=== PATIENT | female | born 1960 | race Caucasian/White ===

== ENCOUNTER 2018-07-01 11:26 | Emergency (ER) | payer OTHER ==
[~2018-07-01] VITALS: Ht 170.2 cm; Wt 54.4 kg
[2018-07-01] MEDS ORDERED: BUTA1CAP31 PO (11:49)
--- NOTE | 2018-07-01 11:49 | PHYS DOC ---
Adult General Chief Complaint Chief Complaint: SUTURE/STAPLE REMOVAL [facility] HPI Patient is a 57 year old female who presents for staple removal. Patient states she had the syncopal placement in [facility] on June 11 and was not able to come for removing nagi sooner than today. Patient denies fever and chills and drainage of pus or blood from the staple site. Patient complaining of chronic migraine headache and asking for refill of Fioricet with codeine for 10 days. Review of Systems Review of Systems Constitutional: Denies fever or chills [] Eyes: Denies change in visual acuity, redness, or eye pain [] HENT: Denies nasal congestion or sore throat [] Respiratory: Denies cough or shortness of breath [] Cardiovascular: No additional information not addressed in HPI [] GI: Denies abdominal pain, nausea, vomiting, bloody stools or diarrhea [] : Denies dysuria or hematuria [] Musculoskeletal: Denies back pain or joint pain [] Integument: Denies rash or skin lesions [] Neurologic: Reports headache, denies focal weakness or sensory changes [] Endocrine: Denies polyuria or polydipsia [] All other systems were reviewed and found to be within normal limits, except as documented in this note. Physical Exam Physical Exam Constitutional: Well nourished, no acute distress, non-toxic appearance. [] HENT: Normocephalic, left temporal well healed wound with [address] Eyes: PERRLA, EOMI, conjunctiva normal, no discharge. [] Neck: Normal range of motion, no tenderness, supple, no stridor. [] Cardiovascular:Heart rate regular rhythm, no murmur [] Lungs & Thorax: Bilateral breath sounds clear to auscultation [] Back: No tenderness, no CVA tenderness. [] Extremities: No tenderness, no cyanosis, no clubbing, ROM intact, no edema. [] Neurologic: Alert and oriented X 3, normal motor function, normal sensory function, no focal deficits noted. [] Psychologic: Affect normal, judgement normal, mood normal. [] Current Patient Data Vital Signs Vital Signs Date Time Temp Pulse Resp B/P (MAP) Pulse Ox O2 Delivery O2 Flow Rate FiO2 07/01/18 11:51 98.4 86 16 142/69 (93) 98 Room Air 98.4 EKG EKG [] Radiology/Procedures Radiology/Procedures [] Course & Med Decision Making Course & Med Decision Making Evaluation of patient in ER showed 57-year-old female patient presented for staple removal and asking for refill of Fioricet with codeine. 6 nagi was removed by BAR TACKER without problem and patient had prescription for Fioricet# 10 a nd was advised to follow up with her primary care physician for refill of chronic medication. Dragon Disclaimer Dragon Disclaimer This electronic medical record was generated, in whole or in part, using a voice recognition dictation system. Departure Departure Impression: Primary Impression: Encounter for staple removal Additional Impressions: Medication refill Migraine Disposition: HOME, SELF-CARE (at 1147) Condition: STABLE Referrals: TAMERA RODRIGUEZ (PCP) Patient Instructions: Medication Refill, Emergency Department, Migraine Headache, Staple Removal, Care After Additional Instructions: Keep wound clean and dry Follow-up with your primary care physician in 2 days for refill of medication Return to ER if not getting better Scripts Butalbital/Aspirin/Caffeine (FIORINAL 50-325-40 MG CAPSULE) 1 Each Capsule 1 EACH PO QID, #10 CAP Prov: ALEJANDRO RICHARD MD 07/01/18 Problem Qualifiers Additional Impressions: Migraine Migraine type: unspecified Status migrainosus presence: without status migrainosus Intractability: not intractable Qualified Codes: G43.909 - Migraine, unspecified, not intractable, without status migrainosus ALEJANDRO RICHARD MD July 01, 2018 11:49
[2018-07-01 11:51] VITALS: BP 142/69
== END 2018-07-01 12:12 | disposition home or self-care (01) ==
LOC: ER 11:26
DX: S01.81XD Laceration without foreign body of other part of head, subsequent encounter (principal); G43.909 Migraine, unspecified, not intractable, without status migrainosus; Z76.0 Encounter for issue of repeat prescription; G89.29 Other chronic pain; X58.XXXD Exposure to other specified factors, subsequent encounter
CPT/HCPCS: 99283

== ENCOUNTER 2018-07-20 19:15 | Emergency (ER) | payer OTHER ==
[~2018-07-20] VITALS: Ht 172.7 cm; Wt 63.5 kg
[~2018-07-20 19:15] MED LIST: BUTA1CAP31 PO
[2018-07-20 19:34] VITALS: BP 144/76
[2018-07-20] MEDS: ALPRAZolam 0.5 MG TABLET PO ONE (20:37)
[2018-07-20] MEDS ORDERED: TOPI100T42 PO (20:39)
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
[2018-07-20] MEDS: clonazePAM 0.5 MG TABLET PO ONE (20:40)
[2018-07-20] MEDS: TOPIRAMATE 100 MG TABLET. PO STA (20:52)
== END 2018-07-20 20:57 | disposition home or self-care (01) ==
LOC: ER 19:15
DX: F41.9 Anxiety disorder, unspecified (principal); G43.909 Migraine, unspecified, not intractable, without status migrainosus; Z76.0 Encounter for issue of repeat prescription
CPT/HCPCS: 99284

== ENCOUNTER 2018-12-06 14:41 | Emergency (ER) | payer MEDICAID, OTHER ==
[~2018-12-06] VITALS: Ht 170.2 cm; Wt 61.2 kg
[~2018-12-06 14:41] MED LIST changes: +TOPI100T42 PO
[2018-12-06] MEDS ORDERED: IV NORMAL SALINE 1000ML BAG 1,000 ML IV SCH (15:07)
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
[2018-12-06 15:23] LABS: BASO # 0.1 x10^3/uL (0.0-0.2); BASO % 1 % (0-3); EOS % 0 % (0-3); HEMATOCRIT 39.2 % (36.0-47.0); LYMPH % 27 % (24-48); MEAN CORPUSCULAR HEMOGLOBIN 29 pg (25-35); MEAN CORPUSCULAR HGB CONC 33 g/dL (31-37); MEAN CORPUSCULAR VOLUME 89 fL (79-100); MONO # 0.3 x10^3/uL (0.0-1.1); MONO % 4 % (0-9); NEUT # 4.9 x10^3/uL (1.8-7.7); NEUT % 67 % (31-73); PLATELET COUNT 130 x10^3/uL (140-400); RED BLOOD COUNT 4.42 x10^6/uL (3.50-5.40); RED CELL DISTRIBUTION WIDTH 15.9 % (11.5-14.5); WHITE BLOOD COUNT 7.4 x10^3/uL (4.0-11.0)
[2018-12-06 15:33] LABS: CALCIUM 9.3 mg/dL (8.5-10.1); GFR 56.7; POTASSIUM 3.8 mmol/L (3.5-5.1)
[2018-12-06 15:39] LABS: PROTHROMBIN TIME PATIENT 12.6 SEC (11.7-14.0)
[2018-12-06 15:40] LABS: ALBUMIN 3.6 g/dL (3.4-5.0); ALBUMIN/GLOBULIN RATIO 0.9 (1.0-1.7); TOTAL BILIRUBIN 0.2 mg/dL (0.2-1.0); TOTAL PROTEIN 7.4 g/dL (6.4-8.2)
--- NOTE | 2018-12-06 15:47 | RAD ---
PORTABLE CHEST 1V 12/06/2018 3:07 PM INDICATION: Chest pain COMPARISON: None available TECHNIQUE: Portable frontal view of the chest is provided. FINDINGS: The cardiomediastinal silhouette is similar in appearance. Lungs are clear. Surgical clips are identified in the axillary regions bilaterally. There are no significant pleural effusions. There is no pulmonary vascular congestion. No pneumothorax. IMPRESSION: There is no acute cardiopulmonary process. Electronically signed by: Katherine Hughes MD (12/06/2018 3:44 PM) [facility]
--- NOTE | 2018-12-06 16:05 | EKG ---
[facility] [address] [place] [address] Test Date: 2018-12-06 Test Time: 14:46:43 Pat Name: DERREK ANAYA Department: Room: Gender: F Tack Cutter: : 1960 Requested By: ALEJANDRO RICHARD Order Number: [id number] Reading MD: Sergio Bates MD Measurements Intervals [place] Rate: 79 P: 90 AL: 132 QRS: -1 QRSD: 98 T: -7 QT: 442 QTc: 508 Interpretive Statements SINUS RHYTHM NON-SPECIFIC ST/T CHANGES Electronically Signed On 12-17-2018 11:48:39 CDT by Sergio Bates MD
[2018-12-06 16:16] VITALS: BP 159/94
[2018-12-06] MEDS ORDERED: CLON2TAB PO (16:27)
== END 2018-12-06 16:40 | disposition home or self-care (01) ==
LOC: ER 14:41
DX: R07.2 Precordial pain (principal); F41.9 Anxiety disorder, unspecified; Z76.5 Malingerer [conscious simulation]; Z76.0 Encounter for issue of repeat prescription; Z72.0 Tobacco use; Z71.6 Tobacco abuse counseling; R42 Dizziness and giddiness; G43.909 Migraine, unspecified, not intractable, without status migrainosus
CPT/HCPCS: 36415; 71045; 80053; 82550; 83690; 83880; 84484; 85025; 85610; 93005; 96361; 96374; 99285; J2060; J7030

== ENCOUNTER 2018-12-13 17:07 | Emergency (ER) | payer MEDICAID ==
[~2018-12-13] VITALS: Ht 170.2 cm; Wt 59.0 kg
[2018-12-13 17:15] VITALS: BP 155/108
--- NOTE | 2018-12-13 17:26 | PHYS DOC ---
Past Medical History Past Medical History: Anxiety, Arthritis, Cancer, Fibromyalgia, Migraines, Seizure Past Surgical History: No Surgical History Additional Past Surgical Histo: double mastectomy, left lymph node removal Alcohol Use: None Drug Use: None Adult General Chief Complaint Chief Complaint: Palpitations HPI HPI Patient is a 58 year old female with history of anxiety who presents with requesting EKG. Patient was seen by neurologist Dr. Potts today and was told to go to the emergency room to obtain an EKG because of fast heartbeat. Patient complaining of palpitation at arrival to ER without chest pain. Patient has had history of anxiety and drug-seeking behavior and was seen in this emergency room recently with complaining of anxiety and requesting for refill of medication. Patient has prescription of Xanax given by her neurologist today. Patient denies suicidal and homicidal ideation and hallucination. Review of Systems Review of Systems Constitutional: Denies fever or chills [] Eyes: Denies change in visual acuity, redness, or eye pain [] HENT: Denies nasal congestion or sore throat [] Respiratory: Denies cough or shortness of breath [] Cardiovascular: No additional information not addressed in HPI [] GI: Denies abdominal pain, nausea, vomiting, bloody stools or diarrhea [] : Denies dysuria or hematuria [] Musculoskeletal: Denies back pain or joint pain [] Integument: Denies rash or skin lesions [] Neurologic: Denies headache, focal weakness or sensory changes [] Endocrine: Denies polyuria or polydipsia [] All other systems were reviewed and found to be within normal limits, except as documented in this note. Allergies Allergies Allergies Coded Allergies Type Severity Reaction Last Updated Verified No Known Drug Allergies 07/20/18 No Physical Exam Physical Exam Constitutional: Well nourished, mild distress, non-toxic appearance, very anxious. [] HENT: Normocephalic, atraumatic. Eyes: PERRLA, EOMI, conjunctiva normal, no discharge. [] Neck: Normal range of motion, no tenderness, supple, no stridor. [] Cardiovascular:Heart rate regular rhythm, no murmur [] Lungs & Thorax: Bilateral breath sounds clear to auscultation [] Abdomen: Bowel sounds normal, soft, no tenderness, no masses, no pulsatile masses. [] Skin: Warm, dry, no erythema, no rash. [] Back: No tenderness, no CVA tenderness. [] Extremities: No tenderness, no cyanosis, no clubbing, ROM intact, no edema. [] Neurologic: Alert and oriented X 3, no focal deficits noted. [] Psychologic: Affect anxious, judgement normal, mood normal. [] Current Patient Data Vital Signs Vital Signs Date Time Temp Pulse Resp B/P (MAP) Pulse Ox O2 Delivery O2 Flow Rate FiO2 12/13/18 17:15 98.2 78 24 155/108 (124) 99 Room Air 98.2 EKG EKG EKG interpreted by me. EKG at 1719 showed normal sinus rhythm at rate of 77, leftward axis, incomplete right bundle-branch block, no acute ST and T-wave abnormalities. Radiology/Procedures Radiology/Procedures [] Course & Med Decision Making Course & Med Decision Making Evaluation of patient in ER showed 58-year-old female patient sent from neurology's office for obtaining EKG because of tachycardia. Patient had heart rate of 118 at arrival to ER that decreased to 85 with few minutes of rest. Patient is on long-term anxiety medication and has prescription for Xanax given by neurologist today. Patient was told to follow-up with her neurologist and primary care physician appointment next week. I've spoken with the patient and/or caregivers. I've explained the patient's condition, diagnosis and treatment plan based on information available to me at this time. I've answered the patient's and/or caregivers questions and addressed any concerns. The patient and/or caregivers have a good understanding the patient's diagnosis, condition and treatment plan as can be expected at this point. Vital signs have been stabilized. The patient's condition is stable for discharge from the emergency department. The patient will pursue further outpatient evaluation with her primary care provider or other designated consulting physician as outlined in the discharge instructions. Patient and/or caregivers are agreeable to this plan of care and follow-up instructions have been explained in detail. The patient and/or caregivers have received these instructions in written format and expressed understanding of these discharge instructions. The patient and her caregivers are aware that if any significant change in condition or worsening of symptoms should prompt him to immediately return to this of the closest emergency department. If an emergent department is not readily available I would encourage him to call 911. Salty Disclaimer [place] Disclaimer This electronic medical record was generated, in whole or in part, using a voice recognition dictation system. Departure Departure Impression: Primary Impression: Anxiety Additional Impression: Palpitation Disposition: HOME, SELF-CARE (at 1725) Condition: IMPROVED Referrals: NO PCP (PCP) TIERNEY POTTS MD Patient Instructions: Anxiety and Panic Attacks Additional Instructions: Drink plenty of liquids Follow-up with your primary care physician in 3-5 days Return to ER if not getting better Take medication prescribed by your neurologist Problem Qualifiers ALEJANDRO RICHARD MD Dec 13, 2018 17:26
[2018-12-13] MEDS ORDERED: CLON2TAB PO (20:14)
--- NOTE | 2018-12-14 07:28 | EKG ---
[facility] [address] [place] [address] Test Date: 2018-12-13 Test Time: 17:19:14 Pat Name: DERREK ANAYA Department: Room: Gender: F [employer]: : 1960 Requested By: ALEJANDRO RICHARD Order Number: [id number] Reading MD: Sergio Bates MD Measurements Intervals [place] Rate: 77 P: 71 ME: 132 QRS: -2 QRSD: 98 T: 51 QT: 404 QTc: 459 Interpretive Statements SINUS RHYTHM LEFTWARD AXIS INCOMPLETE RIGHT BUNDLE BRANCH BLOCK Electronically Signed On 12-19-2018 15:38:37 CDT by Sergio Bates MD
== END 2018-12-13 17:37 | disposition home or self-care (01) ==
LOC: ER 17:07
DX: F41.9 Anxiety disorder, unspecified (principal); R00.2 Palpitations; M19.90 Unspecified osteoarthritis, unspecified site; G43.909 Migraine, unspecified, not intractable, without status migrainosus; Z90.13 Acquired absence of bilateral breasts and nipples
CPT/HCPCS: 93005; 99283

== ENCOUNTER 2018-12-13 18:17 | Emergency (ER) | payer MEDICAID ==
[~2018-12-13] VITALS: Ht 170.2 cm; Wt 59.0 kg
[2018-12-13] MEDS ORDERED: clonazePAM 0.5 MG TABLET PO PRN (19:45)
[2018-12-13 20:10] VITALS: BP 148/86
[2018-12-13] MEDS ORDERED: CLON2TAB PO (20:14)
--- NOTE | 2018-12-13 20:14 | PHYS DOC ---
Past Medical History Past Medical History: Anxiety, Arthritis, Cancer, Fibromyalgia, Migraines, Seizure, Other Additional Past Medical Histor: breast ca,"PTSD" (BEATRICE LUCERO APRN) Past Surgical History: No Surgical History, Cancer Surgery Additional Past Surgical Histo: double mastectomy, left lymph node removal (BEATRICE LUCERO APRN) Alcohol Use: None Drug Use: None (BEATRICE LUCERO APRN) Attending Signature I have participated in the care of this patient and I have reviewed and agree with all pertinent clinical information above including history, exam, and recommendations. (YENNIFER DEAN MD) Adult General Chief Complaint Chief Complaint: MEDICATION REFILL HPI HPI Patient is a 58 year old female who presents to the emergency department with request for refill of her Klonopin. Patient states she has been out of her Klonopin for [address] Potts earlier today who prescribed her 1 mg of Xanax 3 times a day however her pharmacy refused to fill the medication stating that it was too soon between refills. Patient states that she has been out of her Klonopin for the last 2 days. (BEATRICE LUCERO APRN) Review of Systems Review of Systems Constitutional: Denies fever or chills [] Eyes: Denies change in visual acuity, redness, or eye pain [] HENT: Denies nasal congestion or sore throat [] Respiratory: Denies cough Cardiovascular: No additional information not addressed in HPI [] GI: Denies abdominal pain, nausea, vomiting, or diarrhea [] Integument: Denies rash or skin lesions [] Neurologic: Denies headache, focal weakness or sensory changes, denies seizure activity [] Psychiatric: Pt reports feeling anxious, denies SI or HI All other systems were reviewed and found to be within normal limits, except as documented in this note. (BEATRICE LUCERO APRN) Current Medications Current Medications Current Medications Medications (Trade) Dose Ordered Sig/Destiny Start Time Stop Time Status Last Admin Dose Admin Clonazepam (KlonoPIN) 2 mg PRN 1X PRN 12/13/18 19:45 12/13/18 20:24 DC 12/13/18 19:46 2 MG (YENNIFER DEAN MD) Allergies Allergies Allergies Coded Allergies Type Severity Reaction Last Updated Verified No Known Drug Allergies 07/20/18 No (YENNIFER DEAN MD) Physical Exam Physical Exam Constitutional: Well developed, well nourished, moderate distress, non-toxic appearance. [] HENT: Normocephalic, atraumatic, bilateral external ears normal, nose normal. [] Eyes: PERRLA, EOMI, conjunctiva normal, no discharge. [] Neck: Normal range of motion, no stridor. [] Cardiovascular:Heart rate regular rhythm Lungs & Thorax: Respirations even and unlabored, no retractions, no respiratory distress Skin: Warm, dry, no erythema, no rash. [] Neurologic: Alert and oriented X 3, no focal deficits noted. [] Psychologic: Affect normal, judgement normal, mood anxious (BEATRICE LUCERO APRN) Current Patient Data Vital Signs Vital Signs Date Time Temp Pulse Resp B/P (MAP) Pulse Ox O2 Delivery O2 Flow Rate FiO2 12/13/18 20:10 79 16 148/86 (106) 99 Room Air 12/13/18 18:25 98.5 98.5 (YENNIFER DEAN MD) EKG EKG [] (BEATRICE LUCERO APRN) Radiology/Procedures Radiology/Procedures [] (BEATRICE LUCERO APRN) Course & Med Decision Making Course & Med Decision Making Pertinent Labs and Imaging studies reviewed. (See chart for details) [] (BEATRICE LUCERO APRN) Dragon Disclaimer Dragon Disclaimer This electronic medical record was generated, in whole or in part, using a voice recognition dictation system. (BEATRICE LUCERO APRN) Departure Departure Impression: Primary Impression: Medication refill Additional Impression: Anxiety Disposition: 01 HOME, SELF-CARE Condition: STABLE Referrals: NO PCP (PCP) Patient Instructions: Anxiety and Panic Attacks, [id number], Medication Refill, Emergency Department Additional Instructions: Fill the prescription and use as directed. Follow up with your doctor next week as planned. Return to the ER if symptoms worsen. Scripts Clonazepam (KLONOPIN) 2 Mg Tablet 1 TAB PO TID for 2 Days, #6 TAB 0 Refills Prov: BEATRICE LUCERO APRN 12/13/18 Problem Qualifiers BEATRICE LUCERO APRN Dec 13, 2018 20:14 YENNIFER DEAN MD Dec 14, 2018 18:54
== END 2018-12-13 20:24 | disposition home or self-care (01) ==
LOC: ER 18:17
DX: F41.9 Anxiety disorder, unspecified (principal); Z76.0 Encounter for issue of repeat prescription; M19.90 Unspecified osteoarthritis, unspecified site; G43.909 Migraine, unspecified, not intractable, without status migrainosus; Z90.13 Acquired absence of bilateral breasts and nipples
CPT/HCPCS: 99283

== ENCOUNTER → 2018-12-13 | Outpatient (CLI) | payer MEDICAID ==
[2018-12-06 16:16] VITALS: BP 159/94
[~2018-12-13] MED LIST changes: +CLON2TAB PO
[2018-12-13 17:38] LABS: FREE T4 0.87 ng/dL (0.76-1.46); THYROID STIM HORMONE (TSH) 4.006 uIU/mL (0.358-3.74)
== END | disposition home or self-care (01) ==
LOC: LAB 16:38
PROVIDERS: ATTEND Psychiatry & Neurology Neurology
DX: G43.709 Chronic migraine without aura, not intractable, without status migrainosus (principal)
CPT/HCPCS: 36415; 84439; 84443